=== PATIENT | female | born 1980 | race Caucasian/White ===

== ENCOUNTER 2019-11-08 12:18 | Outpatient (CLI) | payer OTHER, SELFPAY ==
--- NOTE | 2019-11-11 08:00 | WPDHOLTEREM ---
Holter/Event Monitor Holter/Event Monitor Date of procedure: 11/08/19 Procedure Type: 24 hour holter monitor Indications: Palpitations Conclusion: 1. 24 hour holter monitor on 11/08/19. 2. Underlying rhythm is sinus rhythm. HR range 58-140 bpm; average HR 83 bpm. 3. There are 4 premature supraventricular complexes. No supraventricular tachycardia. 4. There is one premature ventricular complex. No ventricular tachycardia. 5. No sinoatrial or atrioventricular blocks. No significant pauses greater than 2 seconds. 6. No symptoms available for correlation.
== END 2019-11-08 12:19 | disposition home or self-care (01) ==
LOC: CHSCARD 12:24
PROVIDERS: PCP Family Medicine; Visit Provider Family Medicine
DX: R00.2 Palpitations (principal)
CPT/HCPCS: 93225; 93226

== ENCOUNTER 2019-12-11 15:43 | Outpatient (CLI) | payer BC, SELFPAY ==
[2019-12-11 16:01] LABS: Add Urine Microscopic? YES; Appearance Urine Sl Cloudy (Clear); Basophils Absolute Auto 0.04 K/mm3 (0.00-0.10); Basophils Percent Auto 0.5 % (0.0-1.0); Bilirubin Urine 1+ (Negative); Blood Urine Negative (Negative); Color Urine Yellow (Yellow); Eosinophils Absolute Auto 0.11 K/mm3 (0.02-0.50); Eosinophils Percent Auto 1.3 % (1.0-6.0); Glucose Urine UA Negative (Negative); Hematocrit 46.8 % (35.0-49.0); Hemoglobin 15.8 g/dL (12.0-15.0); Immature Granulocyte Absolute 0.03 K/mm3 (0.00-0.00); Immature Granulocyte Percent A 0.4 % (0.0-0.0); Ketones Urine Trace (Negative); Leukocyte Esterase Ur 2+ LEU/UL (Negative); Lymphocytes Absolute Auto 2.76 K/mm3 (1.10-4.50); Lymphocytes Percent Auto 32.2 % (18.0-42.0); Mean Corpuscular HGB Conc 33.8 g/dL (32.0-36.0); Mean Corpuscular Hemoglobin 28.8 pg (27.0-31.0); Mean Corpuscular Volume 85.4 fL (78.0-102.0); Mean Platelet Volume 8.5 fl (9.2-11.8); Monocytes Absolute Auto 0.53 K/mm3 (0.10-0.90); Monocytes Percent Auto 6.2 % (2.0-11.0); Neutrophils Absolute Auto 5.1 K/mm3 (1.7-7.2); Neutrophils Percent Auto 59.4 % (50.0-70.0); Nitrate Urine Negative (Negative); Platelet Count Result 320 K/mm3 (150-420); Protein Urine Negative (Negative); Red Blood Count 5.48 M/mm3 (4.20-5.40); Red Cell Distribution Width 12.9 % (11.6-14.4); Specific Grav Ur >= 1.030 (1.010-1.020); Urobilinogen Urine 0.2 mg/dL (0.2-1.0); White Blood Count 8.6 K/mm3 (4.8-10.8); pH Urine 5.5 (5.0-8.0)
[2019-12-11 16:05] LABS: Pregnancy On Board Control Positive; Specific Gravity Ur > 1.030 (1.010-1.035); Urine Pregnancy Test Negative
[2019-12-11 16:10] LABS: Bacteria Urine 4+ /hpf; Mucus Urine Moderate /lpf; Squamous Epithelial Cell Urine Many /hpf (Few)
[2019-12-11 17:49] LABS: Alanine Aminotransferase 29 U/L (14-59); Albumin Level 4.1 g/dL (3.4-5.0); Alkaline Phosphatase 46 U/L (46-116); Amylase 44 U/L (25-115); Aspartate Amino Transferase 19 U/L (15-37); Bilirubin,Total 0.5 mg/dL (0.00-1.00); Blood Urea Nitrogen 6 mg/dL (7-18); Calcium 9.6 mg/dL (8.5-10.1); Carbon Dioxide 26 mmol/L (21-32); Chloride 105 mmol/L (98-108); Estimated Glomerular Filt Rate > 60; Glucose 86 mg/dL (70-99); Lipase 112 U/L (73-393); Osmolality Calculated 288 mOsm/kg (285-295); Sodium 141 mmol/L (136-145); Total Protein 7.4 g/dL (6.4-8.2)
== END 2019-12-11 15:44 | disposition home or self-care (01) ==
LOC: CHSLAB 15:46
PROVIDERS: PCP Family Medicine; Visit Provider Family Medicine
DX: R10.816 Epigastric abdominal tenderness (principal)
CPT/HCPCS: 36415; 80053; 81001; 81025; 82150; 83690; 85025; 87086; 87088

== ENCOUNTER 2021-06-02 08:15 | Outpatient (CLI) | payer BC, SELFPAY ==
--- NOTE | ~2021-06-02 | US_ITS ---
EXAMINATION: US right upper quadrant EXAM DATE: 06/02/2021 08:56 INDICATION: Hepatomegaly. Liver lesion seen on outside examination. TECHNIQUE: Multiple grayscale and Doppler images of the abdomen right upper quadrant were obtained (b y a technologist who performed the scan) and subsequently reviewed. There is no prior study for nirmala arshad. FINDINGS: The pancreatic head and body are normal in appearance. The pancreatic tail is not visualized. Mildl y heterogeneous right liver lobe echogenicity without focal mass identified. There is no evidence of intrahepatic biliary duct dilation. Portal venous flow was seen in the hepatopedal, normal direct ion and has normal Doppler waveform. No right-sided hydronephrosis. Common bile duct measures 3 mm, which is normal. The gallbladder fossa is unremarkable. IMPRESSION: Mildly heterogeneous right liver lobe echogenicity without focal mass identified. Please note that contrast-enhanced CT or MR are more specific and sensitive for evaluating liver lesions, re portedly patient has already had one for correlation. Reviewed, dictated and finalized at location B. IMPRESSION: Mildly heterogeneous right liver lobe echogenicity without focal ma ss identified. Please note that contrast-enhanced CT or MR are more specific an d sensitive for evaluating liver lesions, reportedly patient has already had on e for correlation.
== END 2021-06-02 08:16 | disposition home or self-care (01) ==
LOC: CHSIMG 08:18
PROVIDERS: PCP Family Medicine; Visit Provider Family Medicine
DX: R16.0 Hepatomegaly, not elsewhere classified (principal)
CPT/HCPCS: 76705